=== PATIENT | female | born 1990 | race Caucasian/White ===

== ENCOUNTER 2016-11-09 09:43 | Emergency (ER) | payer BC, MEDICAID ==
[2016-11-09 09:55] VITALS: TEMP 98.8; BMI 25.4
[2016-11-09] MEDS ORDERED: DIATRIZOATE MEGLMINE/SODIUM 30 ML BOTTLE PO ONE (10:11)
[2016-11-09] MEDS ORDERED: HYDROmorphone 1 MG INJECTION IV ONE (10:11)
[2016-11-09] MEDS ORDERED: ONDANSETRON HCL 4 MG/2 ML VIAL IV ONE (10:11)
[2016-11-09] MEDS ORDERED: NS 1,000 ML IV ONE (10:11)
--- NOTE | 2016-11-09 10:13 | EDPRACDOC ---
- General Information Chief Complaint: Abdominal Pain Stated Complaint: RT ABD PAIN Time Seen by Provider: 11/09/16 10:07 Mode Of Arrival: Car Home Medications: Home Medications Isotretinoin [Claravis] 30 mg PO DAILY 11/09/16 Oxycodone HCl/Acetaminophen [Percocet 5-325 mg Tablet] 1 each PO Q4 #20 tablet 11/09/16 Allergies/Adverse Reactions: Allergies Allergy/AdvReac Type Severity Reaction Status Date / Time Penicillins Allergy Severe Rash-Genera Verified 11/09/16 09:54 lized - History of Present Illness Onset: last night HPI: PATIENT PRESENTS WITH RLQ ABDOMINAL PAIN SINCE LAST NIGHT. NAUSEA AND VOMITING. NO DIARRHEA Pain Location: Reports: RLQ Pain Context: Reports: Spontaneous Pain Severity: Moderate Pain Quality: Reports: Aching Pain Radiation: Reports: No Radiation Last Menstrual Period: 10/22 Abortus: 0 Blood Type: O+ Adult Abdominal History: Reports: Abdominal Surgery, Urolithiasis Female Abdominal History: Reports: Urolithiasis Modifying Factors: improves with: Nothing Female Associated Signs & Symptoms: Reports: Nausea Oral Intake: Normal Urinary Output: Normal ED Past Medical History - History Reviewed Yes Nurses notes reviewed and agree except as marked Travel Outside of [place] in the Last 3 Months?: No - Patient Medical History GI/ History: Reports: Kidney Stones Systemic History: Reports: Anemia. Denies: Cancer Surgical History: Reports: Cholecystectomy - Family Medical History Reports: Hypertension (mgf, dad), Diabetes (mgf). Denies: Cancer, Stroke, Cardiac Disorders - Social Medical History Smoking Status: Never smoker ETOH: None Substance Abuse: None Lives With: Family Lives In: Home EDM Review of Systems - Review of Systems ROS Negative Except as Marked: Yes All systems reviewed and were negative except as marked Constitutional: No Symptoms Reported. negative: Fever, Chills, Weakness, Fatigue, Loss of Appetite Eyes: No Symptoms Reported. negative: Redness, Blurred Vision, Double Vision, Discharge, Pain, Light Sensitive, Photophobia Ears: No Symptoms Reported. negative: Pain, Hearing Loss, Drainage, Ear Pulling Throat: No Symptoms Reported. negative: Pain, Swelling Nose: No Symptoms Reported. negative: Congestion, Bleeding, Discharge, Injection, Swelling, Deformity, Ecchymosis, Tender, Abrasion, Laceration Mouth: No Symptoms Reported. negative: Pain, Drooling Respiratory: No Symptoms Reported. negative: Cough, Brassy Cough, Barky Cough, Shortness of Breath, Wheezing, Hemoptysis Cardiovascular: No Symptoms Reported. negative: Chest Pain, Palpitations, Syncope, Edema, Orthopnea, PND, Skin Mottling, Cyanosis Gastrointestinal: Nausea, Pain. negative: Constipation, Diarrhea, Formula Intolerance, Melena, Vomiting Genitourinary: No Symptoms Reported. negative: Dysuria, Hematuria, Frequency, Discharge, Bleeding, Testicular Pain, Neurological: No Symptoms Reported. negative: Headache, Dizziness, Seizure, Numbness, Weakness, Speech Difficulty, Gait Difficulty Musculoskeletal: No Symptoms Reported. negative: Neck, Chestwall, Ribs, Back, Shoulder, Arm, Elbow, Forearm, Wrist, Hand, Pelvis, Hip, Femur, Knee, Leg, Ankle , Foot Integumentary: No Symptoms Reported. negative: Itching, Rash, Bruising, Wound Allergic/Immunologic: No Symptoms Reported. negative: Hives, Itching Hematologic: No Symptoms Reported. negative: Lymphadenopathy, Easy Bruising, Easy Bleeding Endocrine: No Symptoms Reported. negative: Weight Gain, Weight Loss Psychiatric: No Symptoms Reported. negative: Anxiety, Depression, Hallucinations, Insomnia, Suicidal - Physical Exam Constitutional: Alert (Awake), Distress (MODERATE) Oriented to: Time, Person, Place Last recorded Vital Signs: Last Vital Signs Temp 98.8 F 11/09/16 09:54 Pulse 75 11/09/16 11:25 Resp 18 11/09/16 11:25 BP 124/80 11/09/16 11:25 Pulse Ox 100 11/09/16 11:25 Oxygen Pulse Oxygen Saturation 100 O2 Device Room Air Oxygen Flow Rate Fraction of Inspired Oxygen ( FIO2) - HEENT Head: Normal ( normocephalic) Eye Exam: Normal (PERRL, EOMI, Sclera white) Oropharynx: Normal (Pharynx:Moist without exudate,Gums-no swelling) Tympanic Membrane: Normal ENT EAC: Normal TMJ: Normal Nose: No Symptoms Reported (septum midline) Neck: Normal (FROM, trachea at midline) - Respiratory/Cardiovascular Respiratory: Normal - CTA (BBS clear to auscultation without adventitious sounds ) Cardiovascular: Normal (RRR without murmur, gallop or rub) - GI Auscultation: Normal (NABS) Palpation: Normal (Soft,No rebound or guarding, non distended) Tenderness: Moderate, RLQ. negative: Guarding, Rigidity Ojeda's Sign: Negative - Musculoskeletal Back: Normal (Non-Tender) Extremities: Normal (Normal tone, Pulses 2+ No cyanosis or edema, FROM) - Integumentary Skin: Normal, Warm, Dry Lymphatics: Normal (no adenopathy) - Neurologic Memory Impaired: Normal Motor Function: Normal (Normal tone, Pulses 2+ No cyanosis or edema, FROM) Cranial Nerve: Normal (CN II-X11 intact sensation, strength 5/5) Cerebellar: Normal Mood Description: Normal Perception: Normal - Results 11/09/16 10:15 11/09/16 10:15 WBC 8.4 xk/uL (3.8-10.8) 11/09/16 10:15 RBC 4.54 xM/uL (4.20-5.40) 11/09/16 10:15 Hgb 12.5 g/dL (12.0-16.0) 11/09/16 10:15 Hct 37.8 % (36-47) 11/09/16 10:15 MCV 83 fL (81-99) 11/09/16 10:15 MCH 27.5 pg (27-32) 11/09/16 10:15 MCHC 32.9 g/dl (33-36) L 11/09/16 10:15 RDW 15.5 % (11.5-14.5) H 11/09/16 10:15 Plt Count 313 xk/uL (130-400) 11/09/16 10:15 MPV 8.1 fL (7.4-10.4) 11/09/16 10:15 Neut % (Auto) 57.8 % (45-76) 11/09/16 10:15 Lymph % (Auto) 32.5 % (17-44) 11/09/16 10:15 [place] % (Auto) 8.1 % (3-10) 11/09/16 10:15 Eos % (Auto) 1.2 % (0-5) 11/09/16 10:15 Baso % (Auto) 0.4 % (0-2) 11/09/16 10:15 Absolute Neuts (auto) 4.79 xk/uL (1.7-8.2) 11/09/16 10:15 Absolute Lymphs (auto) 2.69 xk/uL (0.65-4.75) 11/09/16 10:15 Sodium 139 mEq/L (137-146) 11/09/16 10:15 Potassium 4.1 mEq/L (3.5-5.1) 11/09/16 10:15 Chloride 104 mEq/L (98-107) 11/09/16 10:15 Carbon Dioxide 25 mMOL/L (22-33) 11/09/16 10:15 Anion Gap 14 mEq/L (8-16) 11/09/16 10:15 BUN 14 MG/DL (7-17) 11/09/16 10:15 Creatinine 0.60 MG/DL (0.52-1.04) 11/09/16 10:15 Estimated GFR (MDRD) > 60 mL/min (>=60) 11/09/16 10:15 Glucose 82 MG/DL (70-99) 11/09/16 10:15 Calculated Osmolality 268 MOs/Kg (270-290) L 11/09/16 10:15 Calcium 9.1 MG/DL (8.4-10.2) 11/09/16 10:15 Total Bilirubin 0.6 MG/DL (0.2-1.3) 11/09/16 10:15 AST 25 IU/L (14-36) 11/09/16 10:15 ALT 29 IU/L (9-52) 11/09/16 10:15 Alkaline Phosphatase 88 IU/L (38-126) 11/09/16 10:15 Total Protein 8.1 G/DL (6.3-8.2) 11/09/16 10:15 Albumin 4.5 G/DL (3.5-5.0) 11/09/16 10:15 Lipase 67 U/L (23-300) 11/09/16 10:15 Urine Color Yellow 11/09/16 09:56 Urine Clarity Sl cldy 11/09/16 09:56 Urine pH 6.0 (5.0-8.0) 11/09/16 09:56 Ur Specific [place] 1.020 (1.003-1.035) 11/09/16 09:56 Urine Protein Neg (NEG/TRACE) 11/09/16 09:56 Urine Glucose (UA) Neg (NEGATIVE) 11/09/16 09:56 Urine Ketones Neg (NEGATIVE) 11/09/16 09:56 Urine Occult Blood Neg (NEG/TRACE) 11/09/16 09:56 Urine Nitrite Neg (NEGATIVE) 11/09/16 09:56 Urine Bilirubin Neg (NEGATIVE) 11/09/16 09:56 Urine Urobilinogen 0.2 MG/DL (0-1) 11/09/16 09:56 Ur Leukocyte Esterase Trace (NEGATIVE) 11/09/16 09:56 Urine RBC 0-2 (0-5) 11/09/16 09:56 Urine WBC 2-5 (0-5) 11/09/16 09:56 Ur Epithelial Cells 3+ 11/09/16 09:56 Urine Bacteria 2+ (NEG/FEW) H 11/09/16 09:56 Urine Mucus Mod (NEG/OCC) H 11/09/16 09:56 Urine Test Neg (NEGATIVE) 11/09/16 09:56 Lab Results 11/09/16 11/09/16 11/09/16 10:15 10:15 09:56 WBC 8.4 RBC 4.54 Hgb 12.5 Hct 37.8 MCV 83 MCH 27.5 MCHC 32.9 L RDW 15.5 H Plt Count 313 MPV 8.1 Neut % (Auto) 57.8 Lymph % (Auto) 32.5 [place] % (Auto) 8.1 Eos % (Auto) 1.2 Baso % (Auto) 0.4 Absolute Neuts (auto) 4.79 Absolute Lymphs (auto) 2.69 Sodium 139 Potassium 4.1 Chloride 104 Carbon Dioxide 25 Anion Gap 14 BUN 14 Creatinine 0.60 Estimated GFR (MDRD) > 60 Glucose 82 Calculated Osmolality 268 L Calcium 9.1 Total Bilirubin 0.6 AST 25 ALT 29 Alkaline Phosphatase 88 Total Protein 8.1 Albumin 4.5 Lipase 67 Urine Color Urine Clarity Urine pH Ur Specific [place] Urine Protein Urine Glucose (UA) Urine Ketones Urine Occult Blood Urine Nitrite Urine Bilirubin Urine Urobilinogen Ur Leukocyte Esterase Urine RBC Urine WBC Ur Epithelial Cells Urine Bacteria Urine Mucus Urine Test Neg 11/09/16 09:56 WBC RBC Hgb Hct MCV MCH MCHC RDW Plt Count MPV Neut % (Auto) Lymph % (Auto) [place] % (Auto) Eos % (Auto) Baso % (Auto) Absolute Neuts (auto) Absolute Lymphs (auto) Sodium Potassium Chloride Carbon Dioxide Anion Gap BUN Creatinine Estimated GFR (MDRD) Glucose Calculated Osmolality Calcium Total Bilirubin AST ALT Alkaline Phosphatase Total Protein Albumin Lipase Urine Color Yellow Urine Clarity Sl cldy Urine pH 6.0 Ur Specific [place] 1.020 Urine Protein Neg Urine Glucose (UA) Neg Urine Ketones Neg Urine Occult Blood Neg Urine Nitrite Neg Urine Bilirubin Neg Urine Urobilinogen 0.2 Ur Leukocyte Esterase Trace Urine RBC 0-2 Urine WBC 2-5 Ur Epithelial Cells 3+ Urine Bacteria 2+ H Urine Mucus Mod H Urine Test Decision Time to Discharge: 12:38 - Departure Yes I personally saw and evaluated the patient. Disposition: Home Condition: Good Final Diagnosis: Right ovarian cyst, Abdominal pain Instructions: Acute Abdominal Pain (ED), Ovarian Cyst (ED) Education/Counseling Given To: Patient Education/Counseling Given Regarding: Diagnosis, Treatment, Prognosis, Follow Up Referrals: Rey Callaway MD [Primary Care Provider] - One Week Jaclyn Becker MD [Staff Physician] - One Week Prescriptions: Oxycodone HCl/Acetaminophen [Percocet 5-325 mg Tablet] 1 each PO Q4 #20 tablet
[2016-11-09 10:25] LABS: AUTOMATED BASOPHIL 0.4 % (0-2); AUTOMATED EOSINOPHIL 1.2 % (0-5); AUTOMATED LYMPH 32.5 % (17-44); AUTOMATED MONOCYTE 8.1 % (3-10); AUTOMATED NEUTROPHIL 57.8 % (45-76); MPV 8.1 fL (7.4-10.4)
[2016-11-09 10:30] LABS: RBC/URINE 0-2 (0-5)
[2016-11-09 10:31] LABS: LEUKOCYTES/URINE TRACE (NEGATIVE); NITRITE/URINE NEG (NEGATIVE); URINE OCCULT BLOOD NEG (NEG/TRACE)
[2016-11-09 10:44] LABS: BLOOD UREA NITROGEN 14 MG/DL (7-17); CALCIUM 9.1 MG/DL (8.4-10.2); CALCULATED OSMOLALITY 268 MOs/Kg (270-290); CHLORIDE 104 mEq/L (98-107); GLUCOSE 82 MG/DL (70-99); SODIUM LEVEL 139 mEq/L (137-146); TOTAL PROTEIN 8.1 G/DL (6.3-8.2)
[2016-11-09] MEDS ORDERED: Pharmacy Review for Metformin - IV Contrast Given SCH ×2 (11:00)
--- NOTE | 2016-11-09 12:33 | DIRPT ---
CLINICAL DATA: Lower abdominal pain, primarily right lower quadrant EXAM: CT ABDOMEN AND PELVIS WITH CONTRAST TECHNIQUE: Multidetector CT imaging of the abdomen and pelvis was performed using the standard protocol following bolus administration of intravenous contrast. Oral contrast was also administered. CONTRAST: 80 mL Isovue 370 nonionic COMPARISON: June 24, 2015 FINDINGS: Lower chest: There is mild posterior basilar atelectasis. Lung bases otherwise are clear. Hepatobiliary: No focal liver lesions are identified. Gallbladder is surgically absent. There is no biliary duct dilatation. Pancreas: No mass or inflammatory focus. Spleen: No splenic lesions are identified. Adrenals/Urinary Tract: No adrenal lesions are identified. There is no demonstrable renal mass or hydronephrosis on either side. There is a 2 mm calculus in the upper to mid left kidney laterally. No other intrarenal calculi are identified. There are no ureteral calculi on either side. The urinary bladder is midline with wall thickness within normal limits. Stomach/Bowel: Rectum and distal sigmoid colon are mildly distended with stool. There is no bowel wall or mesenteric thickening. No bowel obstruction. No free air or portal venous air. Vascular/Lymphatic: There is no demonstrable abdominal aortic aneurysm. Major mesenteric vessels appear patent. There is no demonstrable adenopathy in the abdomen or pelvis. Reproductive: Uterus is anteverted. Intrauterine device is positioned within the endometrium. There is a 2.3 x 1.7 cm right ovarian cyst versus dominant follicle. No other pelvic mass is identified. There is fluid tracking into the cul-de-sac primarily from the right adnexa. Other: Appendix appears normal. No abscess in the abdomen or pelvis. Musculoskeletal: There are no blastic or lytic bone lesions. No intramuscular or abdominal wall lesions. IMPRESSION: Small amount of free fluid in the cul-de-sac, tracking from the right adnexa. Suspect recent right ovarian cyst leakage versus rupture. Appendix appears normal. No bowel obstruction. No abscess. Rectum and sigmoid colon mildly distended with stool. Nonobstructing 2 mm calculus left kidney. No hydronephrosis or ureteral calculus on either side. Gallbladder absent. Electronically Signed By: Boubacar Savage III, M.D. On: 11/09/2016 12:30
[2016-11-09 12:48] VITALS: BP 126/75; PULSE 83
== END 2016-11-09 12:50 | disposition home or self-care (01) ==
LOC: ED 09:43
DX: N83.201 Unspecified ovarian cyst, right side (principal)
CPT/HCPCS: 36415; 74177; 80053; 81001; 81025; 83690; 85025; 96361; 96374; 96375; 99284; J1170; J2405